=== PATIENT | female | born 1995 | race Caucasian/White ===

== ENCOUNTER 2025-06-25 12:45 | Outpatient (CLI) | payer OTHER, SELFPAY ==
--- NOTE | 2025-06-25 13:00 | CRLHL7_ITS ---
For Patients: As a result of the Cures Act, medical imaging exams and procedure reports are released immediately into your electronic medical record. You may view this report before your referring provider. If you have questions, please contact your health care provider. OB ULTRASOUND INDICATION: Dating and viability. TECHNIQUE: Real time grayscale imaging of the fetus was performed. Transvaginal. Transvaginal imaging performed to better demonstrate the endometrium and ovaries. LMP: 04/30/2025. ANTOLIN by LMP: 02/04/2026. GA: 8 w, 0 d. Previous US: No. CRL: 2.0 cm. 8 w 4 d. ANTOLIN: 01/31/2026. FHR: 176 BPM. Gestational sac: 3.5 cm. Appears within normal limits. Yolk sac: 4.2 mm. Appears within normal limits. Right ovary: 3.2 x 2.1 x 2.4 cm. Left ovary: 3.5 x 2.6 x 2.2 cm. CL. IMPRESSION: 1. Single living intrauterine measures 8 weeks 4 days with sonographic due date 01/31/2026. 2. Subchorionic hemorrhage measures 3.5 x 1.2 x 2.5 cm. Balta Perea M.D. Diagnostic Radiologist [email or web address]/Dictated by: Balta Perea MD @ 06/25/2025 1:45:00 PM (Electronically Signed)
== END 2025-06-25 12:46 | disposition home or self-care (01) ==
LOC: US 12:47
PROVIDERS: Visit Provider Physician Assistant
DX: O20.9 Hemorrhage in early pregnancy, unspecified (principal); Z3A.01 Less than 8 weeks gestation of pregnancy; Z67.40 Type O blood, Rh positive
CPT/HCPCS: 76817

== ENCOUNTER 2025-06-25 14:16 | Outpatient (CLI) | payer OTHER, SELFPAY ==
[2025-06-25 19:31] LABS: Chlamydia DNA Amplified* NOT DETECTED (No Detected); GC DNA Amplified* NOT DETECTED (No Detected)
== END 2025-06-25 14:17 | disposition home or self-care (01) ==
PROVIDERS: Visit Provider Physician Assistant
DX: Z34.81 Encounter for supervision of other normal pregnancy, first trimester (principal); Z67.40 Type O blood, Rh positive
CPT/HCPCS: 83020; 83021; 85660; 86703; 86704; 86706; 86762; 86780; 86787; 86803; 86850; 86900; 86901; 87086; 87340; 87491; 87591